=== PATIENT | male | born 1960 | race Asian ===

== ENCOUNTER 2018-01-04 06:56 | Day surgery (SDC) | payer OTHER ==
[2018-01-01 15:11] VITALS: BMI 25.8
--- NOTE | 2018-01-04 08:34 | PROC ---
Endoscopy Procedure Endoscopy procedure completed. Please see scanned procedure report.
[2018-01-04 08:44] VITALS: TEMP 97.8
[2018-01-04 10:01] VITALS: BP 106/67; PULSE 54
== END 2018-01-04 09:39 | disposition home or self-care (01) ==
LOC: JASU-ENDO 06:56
PROVIDERS: ATTEND Internal Medicine Gastroenterology
PROC: 0DJD8ZZ Inspection of Lower Intestinal Tract, Via Natural or Artificial Opening Endoscopic (ICD-10-PCS; principal; 2018-01-04 08:00)
DX: Z12.11 Encounter for screening for malignant neoplasm of colon (principal); Z86.010 Personal history of colon polyps; K64.8 Other hemorrhoids